=== PATIENT | male | born 1960 | race Two or more races ===

== ENCOUNTER 2020-06-27 21:40 | Emergency (ER) | payer OTHER ==
[~2020-06-27] VITALS: Ht 170.2 cm; Wt 77.1 kg
[2020-06-27 21:53] VITALS: BP 141/82
[2020-06-28] MEDS ORDERED: TETANUS-DIPTH-ACEL PERTUSSIS 0.5ML SYR Tdap IM ONE (02:45)
[2020-06-28] MEDS ORDERED: cefTRIAXone SOD 1,000 MG VL IM ONE (02:45)
== END 2020-06-28 02:57 | disposition left against medical advice (07) ==
LOC: ER 22:09
DX: S61.011A Laceration without foreign body of right thumb without damage to nail, initial encounter (principal); S61.001A Unspecified open wound of right thumb without damage to nail, initial encounter; X58.XXXA Exposure to other specified factors, initial encounter; Y93.89 Activity, other specified; Y92.89 Other specified places as the place of occurrence of the external cause; Y99.8 Other external cause status
CPT/HCPCS: 73140